=== PATIENT | female | born 1950 | race Caucasian/White ===

== ENCOUNTER → 2017-07-22 17:56 | Outpatient (CLI) | payer BC | END | disposition home or self-care (01) | LOC: D.MAMMO 15:00 | DX: Z12.31 Encounter for screening mammogram for malignant neoplasm of breast (principal) ==

== ENCOUNTER → 2017-08-29 18:47 | Outpatient (CLI) | payer BC | END | disposition home or self-care (01) | LOC: D.MAMMO 13:30 | DX: R92.8 Other abnormal and inconclusive findings on diagnostic imaging of breast (principal) ==

== ENCOUNTER → 2018-01-02 12:04 | Outpatient (CLI) | payer BC | END | disposition home or self-care (01) | LOC: D.CT 12:04 | DX: R16.1 Splenomegaly, not elsewhere classified (principal) ==

== ENCOUNTER → 2019-04-29 14:11 | Outpatient (CLI) | payer BC | END | disposition home or self-care (01) | LOC: D.MRI 14:11 | PROVIDERS: ATTEND Orthopaedic Surgery | DX: M16.12 Unilateral primary osteoarthritis, left hip (principal) ==

== ENCOUNTER 2019-05-06 06:57 | Outpatient (CLI) | payer BC | END 2019-05-06 23:59 | disposition home or self-care (01) | LOC: D.MAMMO 06:57 | PROVIDERS: ATTEND Family Medicine | DX: R92.8 Other abnormal and inconclusive findings on diagnostic imaging of breast (principal) ==

== ENCOUNTER → 2019-05-21 05:42 | Outpatient (CLI) | payer BC | END | disposition home or self-care (01) | LOC: D.US 05:42 | PROVIDERS: ATTEND Family Medicine | DX: R74.8 Abnormal levels of other serum enzymes (principal) ==

== ENCOUNTER → 2020-02-04 14:34 | Outpatient (CLI) | payer BC | END | disposition home or self-care (01) | LOC: D.US 14:34 | PROVIDERS: ATTEND Family Medicine | DX: R74.8 Abnormal levels of other serum enzymes (principal) ==

== ENCOUNTER → 2020-02-16 06:32 | Outpatient (CLI) | payer BC ==
[~2020-02-16] VITALS: Ht 160 cm; Wt 81.6 kg
[2020-02-16 14:09] VITALS: Ht 160 cm; Wt 81.6 kg
== END | disposition home or self-care (01) ==
LOC: D.FANS 06:32
PROVIDERS: ATTEND Family Medicine
DX: E11.9 Type 2 diabetes mellitus without complications (principal)

== ENCOUNTER → 2020-02-23 05:33 | Outpatient (CLI) | payer BC ==
[2020-02-16 14:09] VITALS: BMI 31.8
[2020-02-23 06:11] LABS: BASOPHILS 0.5 % (0-2); HEMATOCRIT 45.2 % (36.0-48.0); HEMOGLOBIN 14.8 g/dL (12-16); IMMATURE GRANULOCYTES 0.3 % (0-5); LYMPHOCYTES 48.7 % (15-50); MCH 31.1 pg (26.0-34.0); MCHC 32.7 g/dL (31.0-37.0); MEAN PLATELET VOLUME 11.5 fL (7.4-10.4); MONOCYTES 13.8 % (2-11); NEUTROPHILS 33.7 % (40-80); PLATELET COUNT 221 10x3/uL (130-400); RBC 4.76 10x6/uL (4.00-5.40); RDW 12.8 % (11.5-14.5); WBC 6.1 10x3/uL (4.8-10.8)
[2020-02-23 06:17] LABS: APTT 31.7 SECONDS (22.8-39.4); INR 0.94 (0.85-1.17); PROTIME 12.5 SECONDS (11.6-15.0)
[2020-02-23 06:52] LABS: % SATURATION 34 % (15-55); IRON 110 ug/dl (35-150); TOTAL IRON BIND CAPACITY 317 ug/dl (260-445); UNSAT IRON BIND CAPACITY 207 ug/dl (150-375)
[2020-02-23 08:05] LABS: ALKALINE PHOSPHATASE 85 U/L (30-120); ALT (SGPT) 187 U/L (10-68); BILIRUBIN - DIRECT 0.11 mg/dL (0.00-0.30); BILIRUBIN - TOTAL 0.31 mg/dL (0.2-1.3); CALC OSMOLALITY 281 mosm/kg (275-300); CALCIUM 9.8 mg/dL (8.5-10.1); CARBON DIOXIDE 24.8 mmol/L (21.0-32.0); CHLORIDE - SERUM 105 mmol/L (98-107); CHOL - HDL RATIO 3.6 ratio (2.3-4.1); CHOLESTEROL, TOTAL 189 mg/dL (0-200); CREATININE - SERUM 0.8 mg/dL (0.6-1.3); GAMMA GT 73 U/L (5-85); GLUCOSE 109 mg/dL (74-106); HDL CHOLESTEROL 52 mg/dL (32-96); LDL CHOLESTEROL 120 mg/dL (0-100); LDL-HDL RATIO 2.3 ratio (1.5-3.5); SODIUM 140 mmol/L (136-145); TRIGLYCERIDE 88 mg/dL (30-200); UREA NITROGEN 18 mg/dL (7-18); eGFR NON AFRICAN AMERICAN 75 mL/min (90-120)
[2020-02-23 08:07] LABS: FERRITIN 2385 ng/mL (3-244)
[2020-02-24 07:15] LABS: HEPATITIS C ANTIBODY <0.1 S/CO RAT (0.0-0.9)
[2020-02-24 10:12] LABS: HAPTOGLOBIN 121 mg/dL (37-355)
[2020-02-24 11:11] LABS: ANA REFLEX - ANTICHROMATIN ABS <0.2 AI (0.0-0.9); ANA REFLEX - CENTROMERE B ABS <0.2 AI (0.0-0.9); ANA REFLEX - DBL STRANDED DNA <1 IU/mL (0-9); ANA REFLEX - DIRECT Positive (Negative); ANA REFLEX - JO-1 AB <0.2 AI (0.0-0.9); ANA REFLEX - RNP ANTIBODIES 4.3 AI (0.0-0.9); ANA REFLEX - SCL-70 <0.2 AI (0.0-0.9); ANA REFLEX - SJOGRENS AB SSA <0.2 AI (0.0-0.9); ANA REFLEX - SJOGRENS AB SSB 0.3 AI (0.0-0.9); ANA REFLEX - SMITH AB <0.2 AI (0.0-0.9)
[2020-02-24 15:12] LABS: ALPHA FETOPROTEIN -(TUMOR MRK) 3.7 ng/mL (0.0-8.3)
== END | disposition home or self-care (01) ==
LOC: D.LAB 02-19 12:18
PROVIDERS: ATTEND Internal Medicine Gastroenterology
DX: R74.8 Abnormal levels of other serum enzymes (principal); K76.0 Fatty (change of) liver, not elsewhere classified

== ENCOUNTER 2020-04-15 05:41 | Day surgery (SDC) | payer BC ==
[~2020-04-15] VITALS: Ht 160 cm; Wt 78.2 kg
[2020-04-15 05:53] LABS: BASOPHILS 0.4 % (0-2); EOSINOPHILS 4.8 % (0-7); HEMATOCRIT 44.8 % (36.0-48.0); HEMOGLOBIN 14.7 g/dL (12-16); IMMATURE GRANULOCYTES 0.4 % (0-5); LYMPHOCYTES 49.4 % (15-50); MCH 30.9 pg (26.0-34.0); MCHC 32.8 g/dL (31.0-37.0); MCV 94.3 fL (80.0-100.0); MONOCYTES 17.9 % (2-11); NEUTROPHILS 27.1 % (40-80); PLATELET COUNT 215 10x3/uL (130-400); RBC 4.75 10x6/uL (4.00-5.40); RDW 12.5 % (11.5-14.5)
[2020-04-15 06:03] LABS: CALCIUM 9.2 mg/dL (8.5-10.1); CARBON DIOXIDE 26.3 mmol/L (21.0-32.0); POTASSIUM - SERUM 4.3 mmol/L (3.5-5.1)
[2020-04-15 06:04] LABS: INR 0.93 (0.85-1.17); PROTIME 12.4 SECONDS (11.6-15.0)
[2020-04-15 06:09] LABS: APTT 30.5 SECONDS (22.8-39.4)
[2020-04-15] MEDS ORDERED: MICARDIS20 MG PO (06:57)
[2020-04-15 07:14] VITALS: Ht 160 cm; Wt 78.2 kg
--- NOTE | 2020-04-15 10:37 | NUR ---
1000 FREQ VS DONE. PT DENIES PAIN. SITE W/O SWELLING OR DRAINAGE. AT BEDSIDE.
--- NOTE | 2020-04-15 12:50 | NUR ---
1250 IV REMOVED AND INSTRUCTIONS GIVEN TO PT.
== END 2020-04-15 13:00 | disposition home or self-care (01) ==
LOC: D.SP 05:41 → D.CT 08:00 → D.SP 08:00
PROVIDERS: General Practice; ATTEND Internal Medicine Gastroenterology
DX: R94.5 Abnormal results of liver function studies (principal); R79.89 Other specified abnormal findings of blood chemistry; K76.0 Fatty (change of) liver, not elsewhere classified; R49.0 Dysphonia; R12 Heartburn; Z86.010 Personal history of colon polyps

== ENCOUNTER → 2020-05-10 07:47 | Outpatient (CLI) | payer BC ==
[2020-04-15 07:14] VITALS: BMI 30.5
[~2020-05-10 07:47] MED LIST: MICARDIS20 MG PO
== END | disposition home or self-care (01) ==
LOC: D.LAB 05-09 13:12
PROVIDERS: ATTEND Family Medicine
DX: K76.0 Fatty (change of) liver, not elsewhere classified (principal); J63.4 Siderosis

== ENCOUNTER → 2020-10-03 06:23 | Outpatient (CLI) | payer BC ==
[2020-08-31 09:38] VITALS: BMI 30.1
[~2020-10-03 06:23] MED LIST changes: +PEPCID AC20 MG PO
[2020-10-03 07:22] LABS: BASOPHILS 0.3 % (0-2); EOSINOPHILS 2.3 % (0-7); HEMATOCRIT 45.1 % (36.0-48.0); HEMOGLOBIN 15.1 g/dL (12-16); IMMATURE GRANULOCYTES 0.6 % (0-5); LYMPHOCYTE ABS# 2.99 10x3/uL (1.18-3.74); LYMPHOCYTES 46.6 % (15-50); MCH 30.7 pg (26.0-34.0); MCHC 33.5 g/dL (31.0-37.0); MCV 91.7 fL (80.0-100.0); MEAN PLATELET VOLUME 10.7 fL (7.4-10.4); MONOCYTES 13.7 % (2-11); NEUTROPHIL ABS# 2.33 10x3/uL (1.56-6.13); NEUTROPHILS 36.5 % (40-80); PLATELET COUNT 220 10x3/uL (130-400); RBC 4.92 10x6/uL (4.00-5.40); RDW 12.8 % (11.5-14.5); WBC 6.4 10x3/uL (4.8-10.8)
[2020-10-03 07:35] LABS: ANION GAP 8.4 mmol/L (8-16); CARBON DIOXIDE 28.9 mmol/L (21.0-32.0); CREATININE - SERUM 0.9 mg/dL (0.6-1.3); POTASSIUM - SERUM 4.3 mmol/L (3.5-5.1)
[2020-10-03 07:57] LABS: INR 1.03 (0.85-1.17); PROTIME 12.5 SECONDS (11.6-15.0)
== END | disposition home or self-care (01) ==
LOC: D.LAB 06:23 → D.US 07:30 → D.LAB 08:00
PROVIDERS: ATTEND Internal Medicine Gastroenterology
DX: K76.0 Fatty (change of) liver, not elsewhere classified (principal); K74.00 Hepatic fibrosis, unspecified

== ENCOUNTER → 2020-11-18 06:56 | Outpatient (CLI) | payer BC ==
[2020-08-31 09:38] VITALS: BMI 30.1
== END ==
LOC: D.LAB 06:56 → D.RAD 13:00
PROVIDERS: ATTEND Internal Medicine Gastroenterology
DX: R09.89 Other specified symptoms and signs involving the circulatory and respiratory systems (principal); K76.0 Fatty (change of) liver, not elsewhere classified